=== PATIENT | male | born 1940 | race Caucasian/White ===

== ENCOUNTER 2020-06-25 09:21 | Outpatient (CLI) | payer MEDICARE ==
[2020-06-25 09:54] LABS: #Basophils 0.1 thou/uL (0.0-0.2); #Eosinphils 0.6 thou/uL (0.0-0.7); #Lymphocytes 1.2 thou/uL (1.20-3.40); #Monocytes 0.8 thou/uL (0.11-0.59); #Neutrophils 4.6 thou/uL (1.40-6.50); %Basophils 1.6 % (0.0-1.0); %Lymphocytes 16.1 % (21.0-51.0); %Neutrophils 63.4 % (42.0-75.0); Hemoglobin 14.3 g/dL (14.0-18.0); Mean Corpuscular HGB CONC 32.7 g/dL (32.0-36.0); Mean Corpuscular Hemoglobin 31.5 pg (27.0-31.0); Mean Corpuscular Volume 96.4 fL (78.0-98.0); Mean Platelet Volume 7.3 fL (7.4-10.4); Platelet Count 307 thou/uL (130-400); RBC Distribution Width 13.3 % (11.5-14.5); Red Blood Cell (RBC) Count 4.52 mill/uL (4.70-6.10); White Blood Cell (WBC) Count 7.3 thou/uL (4.8-10.8)
[2020-06-25 10:08] LABS: ALT (SGPT) 18 U/L (8-55); AST (SGOT) 16 U/L (5-34); Albumin 4.1 g/dL (3.4-4.8); Alkaline Phosphatase 50 U/L (40-110); Anion Gap 15 mmol/L (10-20); BUN (Urea Nitrogen) 27 mg/dL (8.4-25.7); Bilirubin, Total 0.6 mg/dL (0.2-1.2); Calc. Creatinine Clearance 0 mL/min (70-130); Calcium 9.6 mg/dL (7.8-10.44); Carbon Dioxide 26 mmol/L (23-31); Cardiac Risk 3.6 (Less than 4.5); Chloride 111 mmol/L (98-107); Cholesterol 193 mg/dl (< 200 Desired); Globulin 2.4 g/dL (2.4-3.5); Glucose 101 mg/dL (83-110); HDL Cholesterol 54 mg/dL (>60 Neg Risk); LDL Cholesterol, Calculated 113 mg/dL; Protein, Total 6.5 g/dL (5.8-8.1); Sodium 147 mmol/L (136-145); Triglycerides 128 mg/dL (Less than 150)
--- NOTE | 2020-06-25 10:10 | RAD ---
EXAM: Chest 2 views: HISTORY: COPD with acute exacerbation COMPARISON: None. FINDINGS: There is a normal-sized cardiomediastinal silhouette. Atherosclerotic calcifications are seen in the aorta. There is no evidence of consolidation, mass, or pleural effusion. Degenerative and postsurgical changes are seen in the spine. IMPRESSION: No evidence of acute cardiopulmonary disease
--- NOTE | 2020-06-25 10:21 | RAD ---
EXAM: Lumbar spine 3 views HISTORY: Low back pain, gait instability COMPARISON: None FINDINGS: Status post thoracoplasty changes at L4 with some persistent vertical height loss. Laminectomy changes at L5. Alignment:Mild levoscoliosis of the lumbar sacral spine region. Discs: Mild disc space narrowing at multiple levels. No evidence for a focal bone lesion. IMPRESSION: Status post thoracoplasty changes at L4. Laminectomy changes at L5. Multilevel disc space narrowing. No acute fracture or dislocation.
== END 2020-06-25 09:22 | disposition home or self-care (01) ==
LOC: MADRAD 09:21
PROVIDERS: ATTEND Family Medicine
DX: J44.1 Chronic obstructive pulmonary disease with (acute) exacerbation (principal); R06.2 Wheezing; R26.81 Unsteadiness on feet; M54.5 Low back pain; E78.2 Mixed hyperlipidemia; R29.6 Repeated falls; M47.814 Spondylosis without myelopathy or radiculopathy, thoracic region; Z98.890 Other specified postprocedural states
CPT/HCPCS: 36415; 71046; 72100; 80053; 80061; 85025

== ENCOUNTER 2020-07-14 21:31 | Inpatient (IN) | payer MEDICARE ==
[2020-07-14] MEDS ORDERED: Albuterol 200 PUFF (6.7GM INHALER) INH PRN (22:16)
[2020-07-14 22:53] VITALS: BMI 25.0
[2020-07-15] MEDS ORDERED: Ondansetron ODT 4 MG TAB PO PRN (00:42)
[2020-07-15] MEDS ORDERED: Senokot S 8.6-50 MG TAB PO PRN (00:42)
[2020-07-15] MEDS ORDERED: Acetaminophen 325 MG TAB PO PRN (00:42)
[2020-07-15] MEDS: Dexamethasone 4 MG TAB PO SCH (09:57)
[2020-07-15] MEDS: Carvedilol 3.125 MG TAB PO SCH ×2 (09:57→17:25)
[2020-07-15] MEDS: Polyethylene Glycol 3350 17 GM Packet PO SCH (09:57)
[2020-07-15] MEDS: NIFEdipine XL 30 MG TAB PO SCH (09:59)
[2020-07-15] MEDS: Folic Acid 1 MG TAB PO SCH (09:59)
[2020-07-15] MEDS: Multivitamin W/ Minerals 1 TAB PO SCH (09:59)
[2020-07-15] MEDS: Tamsulosin HCl 0.4 MG CAP PO SCH (10:00)
[2020-07-15] MEDS: Sodium Bicarbonate Tab 325 MG TAB PO SCH ×3 (10:00→22:07)
[2020-07-15] MEDS: Aspirin 81 mg Enteric Coated Tablet PO SCH (10:00)
[2020-07-15] MEDS: Zinc Sulfate 220 MG CAP PO SCH (10:01)
[2020-07-15] MEDS: Ascorbic Acid 500 mg Chewable Tablet PO SCH (10:01)
[2020-07-15] MEDS: Cyanocobalamin (Vitamin B-12) 1,000 MCG TAB PO SCH (10:01)
[2020-07-15] MEDS: Atorvastatin Calcium 10 MG TAB PO SCH (22:07)
[2020-07-16] MEDS: Aspirin 81 mg Enteric Coated Tablet PO SCH (09:42)
[2020-07-16] MEDS: Dexamethasone 4 MG TAB PO SCH (09:42)
[2020-07-16] MEDS: NIFEdipine XL 30 MG TAB PO SCH (09:43)
[2020-07-16] MEDS: Folic Acid 1 MG TAB PO SCH (09:43)
[2020-07-16] MEDS: Sodium Bicarbonate Tab 325 MG TAB PO SCH ×3 (09:43→21:24)
[2020-07-16] MEDS: Carvedilol 3.125 MG TAB PO SCH ×2 (09:44→16:38)
[2020-07-16] MEDS: Multivitamin W/ Minerals 1 TAB PO SCH (09:44)
[2020-07-16] MEDS: Ascorbic Acid 500 mg Chewable Tablet PO SCH (09:44)
[2020-07-16] MEDS: Polyethylene Glycol 3350 17 GM Packet PO SCH (09:44)
[2020-07-16] MEDS: Cyanocobalamin (Vitamin B-12) 1,000 MCG TAB PO SCH (09:44)
[2020-07-16] MEDS: Tamsulosin HCl 0.4 MG CAP PO SCH (09:44)
[2020-07-16] MEDS: Zinc Sulfate 220 MG CAP PO SCH (09:44)
[2020-07-16] MEDS: Atorvastatin Calcium 10 MG TAB PO SCH (21:25)
[2020-07-17 06:07] LABS: Band 3 % (5-11); Hemoglobin 13.8 g/dL (14.0-18.0); Large Platelets SLIGHT; Lymphocytes 11 % (21-51); MDiff Complete? YES; Mean Corpuscular Hemoglobin 31.9 pg (27.0-31.0); Mean Corpuscular Volume 93.8 fL (78.0-98.0); Mean Platelet Volume 9.1 fL (7.4-10.4); Monocytes 4 % (0-10); Neutrophil 81 % (42-75); Platelet Count 456 thou/uL (130-400); Platelet Morphology Comment Appears Adequate; RBC Distribution Width 13.9 % (11.5-14.5); RBC Morphology Normal; Reactive Lymphocytes 1 % (0-10); Red Blood Cell (RBC) Count 4.32 mill/uL (4.70-6.10); White Blood Cell (WBC) Count 22.9 thou/uL (4.8-10.8)
[2020-07-17] MEDS: Aspirin 81 mg Enteric Coated Tablet PO SCH (08:31)
[2020-07-17] MEDS: Sodium Bicarbonate Tab 325 MG TAB PO SCH ×3 (08:31→20:30)
[2020-07-17] MEDS: Carvedilol 3.125 MG TAB PO SCH ×2 (08:31→17:18)
[2020-07-17] MEDS: NIFEdipine XL 30 MG TAB PO SCH (08:31)
[2020-07-17] MEDS: Zinc Sulfate 220 MG CAP PO SCH (08:31)
[2020-07-17] MEDS: Ascorbic Acid 500 mg Chewable Tablet PO SCH (08:31)
[2020-07-17] MEDS: Tamsulosin HCl 0.4 MG CAP PO SCH (08:32)
[2020-07-17] MEDS: Cyanocobalamin (Vitamin B-12) 1,000 MCG TAB PO SCH (08:32)
[2020-07-17] MEDS: Folic Acid 1 MG TAB PO SCH (08:32)
[2020-07-17] MEDS: Multivitamin W/ Minerals 1 TAB PO SCH (08:32)
[2020-07-17] MEDS: Dexamethasone 4 MG TAB PO SCH (08:32)
[2020-07-17] MEDS: Polyethylene Glycol 3350 17 GM Packet PO SCH (08:33)
[2020-07-17 12:37] LABS: Anion Gap 14 mmol/L (10-20); BUN (Urea Nitrogen) 45 mg/dL (8.4-25.7); Calc. Creatinine Clearance 33 mL/min (70-130); Calcium 8.5 mg/dL (7.8-10.44); Carbon Dioxide 26 mmol/L (23-31); Chloride 105 mmol/L (98-107); Glucose 145 mg/dL (83-110); Potassium 4.8 mmol/L (3.5-5.1); Sodium 140 mmol/L (136-145)
[2020-07-17] MEDS: Atorvastatin Calcium 10 MG TAB PO SCH (20:30)
[2020-07-18] MEDS: Ascorbic Acid 500 mg Chewable Tablet PO SCH (08:20)
[2020-07-18] MEDS: Polyethylene Glycol 3350 17 GM Packet PO SCH (08:20)
[2020-07-18] MEDS: Multivitamin W/ Minerals 1 TAB PO SCH (08:20)
[2020-07-18] MEDS: Cyanocobalamin (Vitamin B-12) 1,000 MCG TAB PO SCH (08:20)
[2020-07-18] MEDS: Tamsulosin HCl 0.4 MG CAP PO SCH (08:20)
[2020-07-18] MEDS: Zinc Sulfate 220 MG CAP PO SCH (08:20)
[2020-07-18] MEDS: Folic Acid 1 MG TAB PO SCH (08:20)
[2020-07-18] MEDS: Carvedilol 3.125 MG TAB PO SCH ×2 (08:20→17:23)
[2020-07-18] MEDS: Sodium Bicarbonate Tab 325 MG TAB PO SCH ×3 (08:21→20:01)
[2020-07-18] MEDS: NIFEdipine XL 30 MG TAB PO SCH (08:21)
[2020-07-18] MEDS: Dexamethasone 4 MG TAB PO SCH (08:21)
[2020-07-18] MEDS: Aspirin 81 mg Enteric Coated Tablet PO SCH (08:21)
[2020-07-18] MEDS: Atorvastatin Calcium 10 MG TAB PO SCH (20:02)
[2020-07-19] MEDS: NIFEdipine XL 30 MG TAB PO SCH (09:51)
[2020-07-19] MEDS: Tamsulosin HCl 0.4 MG CAP PO SCH (09:51)
[2020-07-19] MEDS: Zinc Sulfate 220 MG CAP PO SCH (09:51)
[2020-07-19] MEDS: Sodium Bicarbonate Tab 325 MG TAB PO SCH ×3 (09:51→20:59)
[2020-07-19] MEDS: Polyethylene Glycol 3350 17 GM Packet PO SCH (09:51)
[2020-07-19] MEDS: Folic Acid 1 MG TAB PO SCH (09:52)
[2020-07-19] MEDS: Dexamethasone 4 MG TAB PO SCH (09:52)
[2020-07-19] MEDS: Carvedilol 3.125 MG TAB PO SCH ×2 (09:52→17:27)
[2020-07-19] MEDS: Aspirin 81 mg Enteric Coated Tablet PO SCH (09:52)
[2020-07-19] MEDS: Multivitamin W/ Minerals 1 TAB PO SCH (09:52)
[2020-07-19] MEDS: Ascorbic Acid 500 mg Chewable Tablet PO SCH (09:52)
[2020-07-19] MEDS: Cyanocobalamin (Vitamin B-12) 1,000 MCG TAB PO SCH (09:52)
[2020-07-19] MEDS: Atorvastatin Calcium 10 MG TAB PO SCH (20:59)
[2020-07-20] MEDS: Folic Acid 1 MG TAB PO SCH (08:45)
[2020-07-20] MEDS: NIFEdipine XL 30 MG TAB PO SCH (08:45)
[2020-07-20] MEDS: Multivitamin W/ Minerals 1 TAB PO SCH (08:46)
[2020-07-20] MEDS: Carvedilol 3.125 MG TAB PO SCH ×2 (08:46→17:13)
[2020-07-20] MEDS: Zinc Sulfate 220 MG CAP PO SCH (08:46)
[2020-07-20] MEDS: Aspirin 81 mg Enteric Coated Tablet PO SCH (08:46)
[2020-07-20] MEDS: Sodium Bicarbonate Tab 325 MG TAB PO SCH ×3 (08:46→20:01)
[2020-07-20] MEDS: Tamsulosin HCl 0.4 MG CAP PO SCH (08:46)
[2020-07-20] MEDS: Polyethylene Glycol 3350 17 GM Packet PO SCH (08:46)
[2020-07-20] MEDS: Cyanocobalamin (Vitamin B-12) 1,000 MCG TAB PO SCH (08:46)
[2020-07-20] MEDS: Ascorbic Acid 500 mg Chewable Tablet PO SCH (08:46)
[2020-07-20] MEDS: Atorvastatin Calcium 10 MG TAB PO SCH (20:00)
[2020-07-21] MEDS: Polyethylene Glycol 3350 17 GM Packet PO SCH (08:46)
[2020-07-21] MEDS: Multivitamin W/ Minerals 1 TAB PO SCH (08:46)
[2020-07-21] MEDS: Sodium Bicarbonate Tab 325 MG TAB PO SCH ×3 (08:46→20:39)
[2020-07-21] MEDS: Folic Acid 1 MG TAB PO SCH (08:46)
[2020-07-21] MEDS: Tamsulosin HCl 0.4 MG CAP PO SCH (08:46)
[2020-07-21] MEDS: Carvedilol 3.125 MG TAB PO SCH ×2 (08:46→17:09)
[2020-07-21] MEDS: Aspirin 81 mg Enteric Coated Tablet PO SCH (08:46)
[2020-07-21] MEDS: Cyanocobalamin (Vitamin B-12) 1,000 MCG TAB PO SCH (08:47)
[2020-07-21] MEDS: NIFEdipine XL 30 MG TAB PO SCH (08:47)
[2020-07-21] MEDS: Zinc Sulfate 220 MG CAP PO SCH (08:47)
[2020-07-21] MEDS: Ascorbic Acid 500 mg Chewable Tablet PO SCH (08:47)
[2020-07-21] MEDS: Atorvastatin Calcium 10 MG TAB PO SCH (20:39)
[2020-07-22] MEDS: Folic Acid 1 MG TAB PO SCH (08:18)
[2020-07-22] MEDS: NIFEdipine XL 30 MG TAB PO SCH (08:18)
[2020-07-22] MEDS: Tamsulosin HCl 0.4 MG CAP PO SCH (08:18)
[2020-07-22] MEDS: Zinc Sulfate 220 MG CAP PO SCH (08:18)
[2020-07-22] MEDS: Sodium Bicarbonate Tab 325 MG TAB PO SCH ×2 (08:18→14:51)
[2020-07-22] MEDS: Multivitamin W/ Minerals 1 TAB PO SCH (08:18)
[2020-07-22] MEDS: Aspirin 81 mg Enteric Coated Tablet PO SCH (08:18)
[2020-07-22] MEDS: Cyanocobalamin (Vitamin B-12) 1,000 MCG TAB PO SCH (08:18)
[2020-07-22] MEDS: Carvedilol 3.125 MG TAB PO SCH ×2 (08:18→17:50)
[2020-07-22] MEDS: Polyethylene Glycol 3350 17 GM Packet PO SCH (08:19)
[2020-07-22] MEDS: Ascorbic Acid 500 mg Chewable Tablet PO SCH (08:19)
[2020-07-22 09:38] VITALS: BP 171/81; TEMP 98.3
== END 2020-07-22 17:50 | disposition home health service (06) | DRG 177 ==
LOC: MADMS 21:31
PROVIDERS: ADMIT Family Medicine; ATTEND Family Medicine
DX: U07.1 COVID-19 (principal); N17.2 Acute kidney failure with medullary necrosis; J12.82 Pneumonia due to coronavirus disease 2019; N39.0 Urinary tract infection, site not specified; R53.81 Other malaise; I12.9 Hypertensive chronic kidney disease with stage 1 through stage 4 chronic kidney disease, or unspecified chronic kidney disease; E78.2 Mixed hyperlipidemia; J44.9 Chronic obstructive pulmonary disease, unspecified; N40.0 Benign prostatic hyperplasia without lower urinary tract symptoms; Z98.42 Cataract extraction status, left eye; Z98.41 Cataract extraction status, right eye; Z87.891 Personal history of nicotine dependence; N18.30 Chronic kidney disease, stage 3 unspecified; J01.00 Acute maxillary sinusitis, unspecified; Z82.3 Family history of stroke; Z79.82 Long term (current) use of aspirin; Z79.899 Other long term (current) drug therapy
CPT/HCPCS: 80048; 85025; J8540

== ENCOUNTER 2020-09-29 15:02 | Emergency (ER) | payer MEDICARE ==
[2020-09-29 16:35] LABS: #Basophils 0.1 thou/uL (0.0-0.2); #Eosinphils 0.5 thou/uL (0.0-0.7); #Lymphocytes 2.2 thou/uL (1.20-3.40); #Monocytes 0.7 thou/uL (0.11-0.59); #Neutrophils 5.2 thou/uL (1.40-6.50); %Basophils 0.8 % (0.0-1.0); %Eosinophils 5.7 % (0.0-10.0); %Lymphocytes 25.4 % (21.0-51.0); %Monocytes 7.8 % (0.0-10.0); %Neutrophils 60.3 % (42.0-75.0); Hemoglobin 12.7 g/dL (14.0-18.0); Mean Corpuscular HGB CONC 31.2 g/dL (32.0-36.0); Mean Corpuscular Volume 102.7 fL (78.0-98.0); Mean Platelet Volume 8.8 fL (7.4-10.4); Platelet Count 297 thou/uL (130-400); RBC Distribution Width 14.2 % (11.5-14.5); Red Blood Cell (RBC) Count 3.95 mill/uL (4.70-6.10); White Blood Cell (WBC) Count 8.6 thou/uL (4.8-10.8)
[2020-09-29 16:51] LABS: ALT (SGPT) 21 U/L (8-55); AST (SGOT) 16 U/L (5-34); Albumin 4.2 g/dL (3.4-4.8); Alkaline Phosphatase 48 U/L (40-110); Anion Gap 17 mmol/L (10-20); BUN (Urea Nitrogen) 26 mg/dL (8.4-25.7); Bilirubin, Total 0.3 mg/dL (0.2-1.2); Calc. Creatinine Clearance 0 mL/min (70-130); Calcium 9.5 mg/dL (7.8-10.44); Carbon Dioxide 24 mmol/L (23-31); Chloride 108 mmol/L (98-107); Globulin 2.8 g/dL (2.4-3.5); Glucose 135 mg/dL (83-110); Magnesium 2.2 mg/dL (1.6-2.6); Sodium 145 mmol/L (136-145)
== END 2020-09-29 19:00 | disposition short-term general hospital (02) ==
LOC: MADERS 15:02
DX: R06.00 Dyspnea, unspecified (principal); R06.02 Shortness of breath; M25.462 Effusion, left knee; M25.461 Effusion, right knee; Z86.16 Personal history of COVID-19; E78.5 Hyperlipidemia, unspecified; I12.9 Hypertensive chronic kidney disease with stage 1 through stage 4 chronic kidney disease, or unspecified chronic kidney disease; N18.4 Chronic kidney disease, stage 4 (severe); E78.00 Pure hypercholesterolemia, unspecified; J44.9 Chronic obstructive pulmonary disease, unspecified; Z87.891 Personal history of nicotine dependence; Z79.899 Other long term (current) drug therapy; Z79.82 Long term (current) use of aspirin
CPT/HCPCS: 71045; 71250; 80053; 83735; 83880; 84484; 85025; 85379; 93005